=== PATIENT | male | born 1980 | race Caucasian/White ===

== ENCOUNTER → 2024-10-09 16:48 | Outpatient (CLI) | payer OTHER, SELFPAY ==
[2024-10-09 18:00] LABS: Influenza A - CEPHEID Flu A NEGATIVE (NEGATIVE); Influenza B - CEPHEID Flu B NEGATIVE (NEGATIVE); Respiratory Syncytial Virus Negative (Negative)
[2024-10-09 18:01] LABS: COVID-19 CEPHEID 4-PLEX PCR POSITIVE (Negative)
== END ==
PROVIDERS: Visit Provider Chiropractor
DX: Z20.9 Contact with and (suspected) exposure to unspecified communicable disease (principal)
CPT/HCPCS: 0241U; 87070